=== PATIENT | male | born 1990 | race Caucasian/White ===

== ENCOUNTER 2024-08-24 06:54 | Emergency (ER) | payer BC ==
[2024-08-24 07:54] LABS: PT Prothrombin Time 12.7 SECONDS (9.4-12.5); Protime INR 1.21
[2024-08-24 07:55] LABS: Absolute Lymphocytes (CBC) 1.4 K/uL (0.7-4.9); Absolute Monocytes 0.4 K/uL (0.1-1.3); Absolute Neutrophil 3.4 K/uL (1.8-8.0); Basophils % 0.6 % (0-1.3); Eosinophils % 0.2 % (0-4.4); Hematocrit 38.9 % (39.6-49.0); Lymphocytes % 27.3 % (15.3-44.8); MCH 26.4 pg (27.0-35.0); MCHC 33.4 g/dL (32.0-36.0); MCV 79.1 fL (80-100); MPV 7.4 fL (7.6-11.3); Monocytes % 7.2 % (3.3-12.3); Neutrophils % 64.7 % (41.7-73.7); Nucleated Red Blood Cells % 0.1 % (0-0); Platelets 194 thou/uL (152-406); RBC Red Blood Cell Count 4.92 M/uL (4.33-5.43); Red Cell Distribution Width 14.6 % (12.1-15.2)
[2024-08-24 07:58] LABS: ALT/SGPT 83 U/L (16-61); AST/SGOT 103 U/L (15-37); Albumin 3.2 g/dL (3.4-5.0); Albumin/Globulin Ratio 0.8 (1.1-1.8); Alkaline Phosphatase 103 U/L (45-117); Anion Gap 16.7 mEq/L (5.0-15.0); BUN Blood Urea Nitrogen 6 mg/dL (7-18); Bicarbonate 22 mEq/L (21-32); Bilirubin Direct 0.2 mg/dL (0-0.2); Bilirubin Indirect, Calculated 0.5 mg/dL (0.2-0.8); Bilirubin Total 0.7 mg/dL (0.2-1.0); Glomerular Filtration Rate 112 ml/min (=/>90); Glucose Level 137 mg/dL (74-106); Potassium 2.7 mEq/L (3.5-5.1); Protein, Total 7.2 g/dL (6.4-8.2); Sodium Level 137 mEq/L (136-145)
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
[2024-08-24 08:16] LABS: Barbiturates NEGATIVE (NEGATIVE); Benzodiazepines NEGATIVE (NEGATIVE); Cocaine NEGATIVE (NEGATIVE); METHAMPHETAM NEGATIVE (NEGATIVE); Methadone NEGATIVE (NEGATIVE); Opiates NEGATIVE (NEGATIVE); Phencyclidine NEGATIVE (NEGATIVE); THC Cannibis POSITIVE (NEGATIVE)
--- NOTE | 2024-08-24 08:45 | ER ---
Nurse's Notes [facility] Name: Bill Paula Age: 34 yrs Sex: Male : 1990 Arrival Date: 08/24/2024 Time: 06:54 Bed 17 Private MD: Diagnosis: Seizure, THC use, alcohol use Presentation: 08/24 07:20 Chief complaint: EMS states: AMS. Coronavirus screen: Client denies travel out of the [place] in the last 14 days. Ebola Screen: No symptoms or risks identified at this time. Initial Sepsis Screen: Does the patient meet any 2 criteria? No. Patient's initial sepsis screen is negative. Does the patient have a suspected source of infection? No. Patient's initial sepsis screen is negative. Risk Assessment: Do you want to hurt yourself or someone else? Patient reports no desire to harm self or others. Note Pt BIBA with c/o AMS and a possible seizure that startd about 4AM this morning. Pt has a hx TBI x 2, on eliquis for blood clots in right leg. Pt looks drowsy and disoriented. Placed on cardiac and O2 monitors. No distress noted. Onset of symptoms was August 24, 2024 at 04:00. 07:20 Method Of Arrival: [facility] ay 07:20 Acuity: SCOTT 3 ay Triage Assessment: 07:28 General: Appears in no apparent distress. uncomfortable, Behavior is cooperative, ay drowsy, restless. Pain: Denies pain. EENT: No signs and/or symptoms were reported regarding the EENT system. Neuro: Level of Consciousness is awake, obeys commands, confused, Oriented to person. Cardiovascular: Capillary refill < 3 seconds Rhythm is regular. Respiratory: Airway is patent Respiratory effort is even, unlabored, Respiratory pattern is regular, symmetrical. GI: Abdomen is flat. : No signs and/or symptoms were reported regarding the genitourinary system. Derm: No signs and/or symptoms reported regarding the dermatologic system. Musculoskeletal: No signs and/or symptoms reported regarding the musculoskeletal system. Historical: - Allergies: 07:28 Unable to obtain; ay - PMHx: 07:36 Cerebrovascular accident; Congestive heart failure; traumatic brain injury; Seizure; kc6 - PSHx: 07:36 Craniotomy; kc6 - Immunization history:: Adult Immunizations not up to date, Client reports having NOT received the Covid vaccine. - Infectious Disease History:: Denies. - Social history:: Smoking status: Patient reports the use of cigarette tobacco products, smokes two packs cigarettes per day. Patient uses alcohol, on a daily basis. Screenin:33 [facility] ED Fall Risk Assessment (Adult) History of falling in the last 3 months, kc6 including since admission No falls in past 3 months (0 pts) Confusion or Disorientation Yes (5 pts) Intoxicated or Sedated Yes (3 pts) Impaired Gait No (0 pts) Mobility Assist Device Used No (0 pt) Altered Elimination No (0 pt) Score/Fall Risk Level 3 or more points = High Risk Oriented to surroundings, Maintained a safe environment, Educated pt \T\ family on fall prevention, incl call for assistance when getting out of bed. Abuse screen: Denies threats or abuse. Denies injuries from another. Nutritional screening: No deficits noted. Tuberculosis screening: No symptoms or risk factors identified. Assessment: 07:00 General: Appears in no apparent distress. comfortable, well groomed, well developed, kc6 Behavior is calm, cooperative, appropriate for age, drowsy, Smells of alcohol. Pain: Denies pain. Neuro: Level of Consciousness is awake, alert, obeys commands, confused, Oriented to person, [employer] are equal bilaterally Moves all extremities. Full function Gait is unsteady, Speech is slurred, Facial symmetry appears normal, Facial symmetry: tongue is midline, Pupils are PERRLA, Intact Babinski is positive. Cardiovascular: Denies chest pain, shortness of breath, Heart tones S1 S2 present Capillary refill < 3 seconds Rhythm is sinus rhythm. Respiratory: Airway is patent Trachea midline Respiratory effort is even, unlabored, Respiratory pattern is regular, symmetrical. GI: No signs and/or symptoms were reported involving the gastrointestinal system. : No signs and/or symptoms were reported regarding the genitourinary system. EENT: No signs and/or symptoms were reported regarding the EENT system. Derm: No signs and/or symptoms reported regarding the dermatologic system. Skin is intact, is healthy with good turgor, Skin is pink, warm \T\ dry. Musculoskeletal: No signs and/or symptoms reported regarding the musculoskeletal system. Circulation, motion, and sensation intact. Range of motion: intact in all extremities. 07:15 Reassessment: Pt to CT with TOM Gonzales VIA stretcher. ss 08:29 Reassessment: Patient appears in no apparent distress at this time. No changes from [facility] previously documented assessment. Patient and/or family updated on plan of care and expected duration. Pain level reassessed. General: Behavior is drowsy. Neuro: Level of Consciousness is awake, alert, obeys commands, Oriented to person, place, time, Appropriate for age. 08:58 Reassessment: Patient appears in no apparent distress at this time. No changes from [facility] previously documented assessment. Patient and/or family updated on plan of care and expected duration. Pain level reassessed. Patient is alert, oriented x 3, equal unlabored respirations, skin warm/dry/pink. Patient states feeling better. Patient states symptoms have improved. Vital Signs: 07:20 BP 117 / 73; Pulse 98; Resp 20; Temp 98.2(O); Pulse Ox 100% on R/A; ay 07:33 BP 128 / 77; Pulse 99; Resp 16 S; Pulse Ox 100% on R/A; Weight 79.38 kg (M); Height 6 [facility] ft. 2 in. (R); 08:58 BP 120 / 66; Pulse 95; Resp 16 S; Pulse Ox 100% on R/A; kc6 07:33 Body Mass Index 22.47 (79.38 kg, 187.96 cm) [facility] ED Course: 06:54 Patient arrived in ED. jj6 07:06 Lamberto Agustin MD is Attending Physician. sp3 07:20 CT Head Brain wo Cont In Process Unspecified. EDMS 07:28 Triage completed. ay 07:32 Janet Barahona, RN is Primary Nurse. kc6 07:32 Initial lab(s) drawn, by nc, sent to lab. Inserted saline lock: [address] [facility] antecubital area, using aseptic technique. Blood collected. Flushed with 10 mL NS. Patient maintains SpO2 saturation greater than 95% on room air. 07:32 Patient has correct armband on for positive identification. Bed in low position. Call [facility] light in reach. Side rails up X2. Adult w/ patient. cardiac monitor on. Pulse ox on. NIBP on. Door closed. Noise minimized. Lights dimmed. Warm blanket given. Pillow given. 07:33 Arm band placed on. kc6 08:05 Urine collected: clean catch specimen, clear. kc6 08:29 Assisted to bathroom. kc6 08:59 No provider procedures requiring assistance completed. IV discontinued, intact, kc6 bleeding controlled, No redness/swelling at site. Pressure dressing applied. 08:59 Provided Education on: ETOH cessation. kc6 Administered Medications: 08:58 Drug: Potassium PO Effervescent Tablet 50 mEq PO once; dissolve in 4 ounces of water or kc6 juice Route: PO; Medication: 08:59 VIS not applicable for this client. kc6 Outcome: 08:45 Discharge ordered by . sp3 08:59 Discharged to home ambulatory, with significant other, kc6 08:59 Condition: improved 08:59 Discharge instructions given to patient, significant other, Instructed on discharge instructions, follow up and referral plans. Demonstrated understanding of instructions, follow-up care, 08:59 Patient left the ED. kc6 Signatures: Dispatcher [employer] EDMS Tana Pepe RN RN Lamberto Agustin MD MD sp3 Emmie Sanderson Kaitlyn, RN RN kc6 Navin Garner RN TOM ay Corrections: (The following items were deleted from the chart) 07:35 07:33 BP 128 / 77; Pulse 99bpm; Resp 16bpm; Spontaneous; Pulse Ox 100% RA; kc6 kc6
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
[2024-08-24] MEDS ORDERED: POTASSIUM 25 MEQ EFFERV TAB ONE (08:51)
--- NOTE | 2024-08-24 11:43 | EKG ---
Test Date: 2024-08-24 Test Time: 07:09:37 [employer]: IRVIN MEASUREMENT RESULTS: Intervals: Rate: 88 [place]: 174 QRSD: 120 QT: 422 QTc: 510 [place]: P: 62 [place]: 174 QRS: 68 T: 43 INTERPRETIVE STATEMENTS: Normal sinus rhythm Normal ECG No previous ECG available for comparison Electronically Signed On 08-24-24 11:42:31 ELIGIBILITY WORKER by Junior Pisano
[2024-08-25 02:48] VITALS: BP 120/66; TEMP 98.2; O2SAT 100
== END 2024-08-24 08:59 | disposition home or self-care (01) ==
LOC: ER 06:54
DX: R56.9 Unspecified convulsions (principal); F10.90 Alcohol use, unspecified, uncomplicated; F12.90 Cannabis use, unspecified, uncomplicated; Z87.820 Personal history of traumatic brain injury
CPT/HCPCS: 36415; 70450; 80048; 80076; 80143; 80179; 80307; 82077; 85025; 85610; 85730; 93005; 99285